=== PATIENT | male | born 1995 | race Asian ===

== ENCOUNTER 2020-03-25 10:37 | Emergency (ER) | payer OTHER ==
[~2020-03-25] VITALS: Ht 167.6 cm; Wt 80.0 kg
[2020-03-25] MEDS ORDERED: IBUPROFEN 600MG TABLET PO ONE (11:15)
[2020-03-25 12:46] VITALS: BP 126/81
== END 2020-03-25 12:47 | disposition home or self-care (01) ==
LOC: ER 10:55
DX: S90.32XA Contusion of left foot, initial encounter (principal); X58.XXXA Exposure to other specified factors, initial encounter; Y93.89 Activity, other specified; Y92.89 Other specified places as the place of occurrence of the external cause; Y99.8 Other external cause status; J45.909 Unspecified asthma, uncomplicated
CPT/HCPCS: 73630; 99283